=== PATIENT | male | born 1940 | race Caucasian/White ===

== ENCOUNTER 2017-02-17 06:47 | Outpatient (CLI) | payer MEDICARE | END 2017-02-17 06:48 | disposition home or self-care (01) | LOC: BICCT 06:47 | PROVIDERS: ATTEND Anesthesiology Pain Medicine | DX: M47.816 Spondylosis without myelopathy or radiculopathy, lumbar region (principal); M54.5 Low back pain | CPT/HCPCS: 72131 ==